=== PATIENT | male | born 1995 | race Caucasian/White ===

== ENCOUNTER → 2021-05-16 09:05 | Outpatient (CLI) | payer OTHER, SELFPAY ==
[2021-05-16 13:36] LABS: COVID19 -Nasal RAPID Negative (Negative)
== END ==
PROVIDERS: Visit Provider Nurse Practitioner Family
DX: Z20.822 Contact with and (suspected) exposure to COVID-19 (principal)
CPT/HCPCS: 87635

== ENCOUNTER 2021-05-18 13:01 | Day surgery (SDC) | payer OTHER, SELFPAY ==
[2021-05-18] VITALS (10 sets, daily range): BP systolic 87–124; BP diastolic 42–75; PULSE 68–102; RESP 12–28; TEMP 36.1–36.6; O2SAT 97–100; BMI 22.6
--- NOTE | 2021-05-18 | PATH_ITS ---
[facility] Accession Number: [id number] . 01 Material submitted: . PART A: body - BIOPSY PART B: body - RANDOM BIOPSY PART C: colon - RANDOM COLON . 01 Clinical history: . A: R/O CELIAC B: R/O EOE C: R/O COLITIS . 02 Diagnosis: A. Biopsy: Duodenal mucosa with no diagnostic abnormality. Negative for active inflammation, features of sprue, dysplasia, or malignancy. . B. Random Biopsy: Squamous mucosa with mild reactive parakeratosis and reflux related changes. A PAS stain is negative for fungal organisms. Intraepithelial eosinophils are not increased. Negative for dysplasia and malignancy. . C. Random Colon, Biopsies: Colonic mucosa with no diagnostic abnormality. Negative for active, chronic, and microscopic colitis. Negative for dysplasia and malignancy. [facility] 05/23/2021 1649 Local . 02 Electronically signed: . Maura Duncan MD, Pathologist NPI- [id number] . 01 Gross description: . Part A: BIOPSY: Received in formalin are 3 fragment(s) of perez, soft tissue measuring 0.3 x 0.3 x 0.2 cm to 0.2 x 0.2 x 0.2 cm submitted entirely in 1 cassette(s) Part B: RANDOM BIOPSY: Received in formalin are 3 fragment(s) of perez, soft tissue measuring 0.3 x 0.3 x 0.1 cm to 0.3 x 0.2 x 0.1 cm submitted entirely in 1 cassette(s) Part C: RANDOM COLON: Received in formalin are 4 fragment(s) of perez, soft tissue measuring 0.4 x 0.3 x 0.1 cm to 0.3 x 0.2 x 0.1 cm submitted entirely in 1 cassette(s) /QBJ 05/19/2021 0846 Local . 02 Microscopic: . B. A PAS stain was performed to evaluate for fungal organisms and is negative. The control stain showed appropriate reactivity. . * This test was developed and its performance characteristics determined by [facility]. It has not been cleared or approved by the U.S. Food and Drug Administration. The FDA has determined that such clearance or approval is not necessary. This test is used for clinical purposes. It should not be regarded as investigational or for research. . 02 Pathologist provided ICD-10: R10.30, R13.14 . 02 CPT . 934317, 990897, 497141, 640730 Performed at: 01 [facility] [address] [facility], [place], [place] [id number] MD West Lynch MD Phone: [phone] Performed at: 02 [facility] [address] [place] [id number] MD Maura Duncan MD Phone: [phone]
[2021-05-18] MEDS: SODIUM CHLORIDE 0.9% 1,000 ML 84 ML IV (13:32)
--- NOTE | 2021-05-18 13:48 | PM.OP.EC ---
Operative Date/Time/Diagnoses Date of procedure: 05/18/21 Pre-op diagnosis: See indication and findings Procedure & Clinicians Study performed: EGD and colonoscopy Indications: Dysphagia, abdominal pain rectal bleeding heartburn Surgeon: Vern Lyon Procedure Notes Procedure in detail: After informed consent was obtained the patient was placed in left lateral decubitus position. Video upper scope placed in knee through oropharynx with the patient's help swelled into esophagus. The esophagus stomach and duodenum were carefully examined. On withdrawal retroflexed view the GE junction was performed. The scope was removed. The patient tolerated procedure well. Patient was then turned to the colonoscope substituted. This was passed through the rectum and advanced cecum. Preparation was good. On slow withdrawal mucosa was carefully examined. The scope was removed. The patient tolerated procedure well. Blood loss none Complications none Sedation mac Findings EGD 1. Completely normal esophagus with normal squamocolumnar junction. Several biopsies taken to rule out eosinophilic esophagitis 2. Normal stomach without any evidence of erythema 3. Normal duodenal bulb and sweep biopsies taken to rule out celiac Colonoscopy 1. Normal colonoscopy to cecum. Random biopsies taken to rule out microscopic colitis Damian should follow-up in the office with Dr. Jose in for further direction
--- NOTE | 2021-05-18 13:52 | PM.HP.1 ---
History of Present Illness History of Present Illness Date Patient Seen: 05/18/21 Chief complaint: DX COLONOSCOPY & EGD Narrative: EGD and colonoscopy in Patient History Medical History (Updated 05/17/21 @ 16:02 by Brandi Carvajal RN) Esophageal dysphagia Heart burn Family & Social History Social History: household members spouse Tobacco & Substance use: Smoking Status Never smoker alcohol intake frequency holiday/special occasion Substance Use Type does not use Meds Home Medications and Allergies Home Medications Medication Instructions Recorded Confirmed Type lamotrigine 25 mg tablet 25 mg PO DAILY 05/17/21 05/18/21 History omeprazole 10 mg capsule,delayed 10 mg PO DAILY 05/17/21 05/18/21 History release quetiapine 50 mg tablet,extended 50 mg PO DAILY 05/17/21 05/18/21 History release 24 hr (Seroquel XR) Allergies Allergy/AdvReac Type Severity Reaction Status Date / Time No Known Drug Allergies Allergy Verified 05/17/21 16:02 Exam Vital Signs (past 8 hours): - 05/18/21 13:17 Temperature 97.7 F Pulse Rate 102 H Respiratory Rate 16 Blood Pressure 124/75 Pulse Oximetry 100 Oxygen Delivery Method Room Air Narrative Exam Narrative: Oropharynx free of lesions Chest clear to auscultation percussion Cardiac exam reveals no S3 or murmur Assessment & Plan Assessment & Plan narrative: Heartburn rectal bleeding abdominal pain dysphagia. Need for EGD and colonoscopy. Risks, benefits, alternatives have been explained. Time Spent With Patient Critical Care time: I spent a total of [] minutes of critical care time on this patient's care today; this time is exclusive of procedural time.
== END 2021-05-18 15:37 | disposition home or self-care (01) ==
PROVIDERS: Referring Provider Internal Medicine Gastroenterology; Visit Provider Internal Medicine Gastroenterology
PROC: 0DJ08ZZ Inspection of Upper Intestinal Tract, Via Natural or Artificial Opening Endoscopic (ICD-10-PCS; CPT 43235; principal; 2021-05-18 14:00)
PROC: 0DJD8ZZ Inspection of Lower Intestinal Tract, Via Natural or Artificial Opening Endoscopic (ICD-10-PCS; CPT 45378; 2021-05-18 14:00)
DX: K62.5 Hemorrhage of anus and rectum (principal); R10.9 Unspecified abdominal pain; R12 Heartburn; R13.10 Dysphagia, unspecified; K22.89 Other specified disease of esophagus
CPT/HCPCS: 45380; 43239; J2250; J2704

== ENCOUNTER → 2022-07-19 06:28 | Outpatient (CLI) | payer OTHER, SELFPAY ==
--- NOTE | 2022-07-19 06:32 | DI.ECHO.S_ITS ---
[facility] +---------+ : : [address] : : : : [id number] : : : : Phone: [phone] Echocardiogram Report + + :Name: JESSICA AHUJA Study Date: 07/19/2022 Height: 66 in : :[facility] ReadingLocation: Weight: 140 lb : : Gender: Male BSA: 1.7 m2 : :: 1995 Age: 27 yrs BP: 116/71 mmHg: :Reason For Study: CHEST PAIN : :Ordering Physician: ROSA, : :DOV Performed By: Alicia Buitrago : :Referring: DOV LEE : + + Interpretation Summary The left ventricle is normal in size. Left ventricular systolic function is normal. The ejection fraction is estimated to be 60-65%. Diastolic parameters suggest probable normal left ventricular diastolic function and normal filling pressures. The right ventricle is normal in size and function. No significant valvular pathology seen. The IVC is of normal diameter and collapses greater than 50% with a sniff. This suggests a low right atrial pressure of 3 mm Hg. Procedure: A two-dimensional transthoracic echocardiogram with color flow and Doppler was performed. The study quality was technically adequate. There is no prior echocardiogram noted for this patient. The patient was in sinus rhythm with heart rates between 79-101 bpm during the exam. Left Ventricle: The left ventricle is normal in size. There is normal left ventricular wall thickness. There is no thrombus. The ejection fraction is estimated to be 60-65%. Left ventricular systolic function is normal. There are no focal wall motion abnormalities. Diastolic parameters suggest probable normal left ventricular diastolic function and normal filling pressures. Right Ventricle: The right ventricle is normal in size and function. Atria: The left atrial size is normal. Right atrial size is normal. There is no Doppler evidence for an interatrial shunt. Mitral Valve: The mitral valve is normal in structure and function. There is no mitral regurgitation noted. Aortic Valve: The aortic valve opens well. The aortic valve is not well visualized. There is no aortic valve stenosis. No aortic regurgitation is present. Tricuspid Valve: The tricuspid valve is normal in structure and function. There is trace tricuspid regurgitation. Pulmonary artery pressures cannot be estimated because of the lack of a measurable TR jet velocity. Pulmonic Valve: The pulmonic valve is not well seen, but is grossly normal. There is no pulmonic valvular regurgitation. Great Vessels: The aortic root is normal size. The dimensions of the ascending aorta are normal. The IVC is of normal diameter and collapses greater than 50% with a sniff. This suggests a low right atrial pressure of 3 mm Hg. Pericardium/ Pleura There is no pericardial effusion. There is no pleural effusion. MMode/2D Measurements & Calculations LVIDd: 4.8 cm LVOT diam: 2.0 cm LVIDs: 2.9 cm Ao root diam: 2.6 cm FS: 38.9 % IVSd: 0.71 cm LVPWd: 0.72 cm LV ambrosio. diameter/BSA (cm/m^2): 2.8 LV sys. diameter/BSA (cm/m^2): 1.7 LA A2 area: 11.8 cm2 RA long axis: 4.0 cm LA A4 area: 14.4 cm2 RA area: 9.8 cm2 LA length (vol): 4.6 cm RA vol: 20.8 ml LA vol: 31.8 ml RA : 12.1 ml/m2 LA vol index: 18.5 ml/m2 IVC diam: 1.6 cm RVD1 (basal): 3.3 cm RVD2 (mid): 2.7 cm TAPSE: 2.3 cm Doppler Measurements & Calculations Ao V2 max: 134.5 cm/sec LVOT Max Rosendo: 115.6 cm/sec Ao V2 mean: 90.1 cm/sec LV V1 max P.3 mmHg Ao max P.2 mmHg LV V1 VTI: 20.9 cm Ao mean P.8 mmHg ANNITA(I,D): 3.0 cm2 Ao V2 VTI: 21.6 cm ANNITA(V,D): 2.6 cm2 sev ratio: 0.97 ANNITA indexed to BSA (cm^2/m^2): 1.7 MV E max rosendo: 98.8 cm/sec PA V2 max: 129.5 cm/sec MV A max rosendo: 38.0 cm/sec PA V2 mean: 91.0 cm/sec MV E/A: 2.6 PA mean P.7 mmHg Med Peak E' Rosendo: 15.5 cm/sec PA pr(Accel): 34.5 mmHg E/E' med: 6.4 Lat Peak E' Rosendo: 14.9 cm/sec E/E' lat: 6.6 E/e' average: 6.5 MV dec time: 0.19 sec SVLVOT): 64.1 ml Reading Physician:01:20 PM
== END ==
PROVIDERS: Referring Provider Orthopaedic Surgery; Visit Provider Orthopaedic Surgery
DX: R07.9 Chest pain, unspecified (principal)
CPT/HCPCS: 93306

== ENCOUNTER → 2023-01-19 11:43 | Outpatient (CLI) | payer OTHER, SELFPAY ==
--- NOTE | 2023-01-19 | DI.RAD.S_ITS ---
PROCEDURE: XR CHEST 2V INDICATIONS: CHEST PAIN TECHNIQUE: 2 views of the chest were acquired. COMPARISON: None. FINDINGS: Surgical changes and devices: Status post Derek procedure for pectus excavatum. Lungs and pleura: Lungs are clear. No pleural effusions or pneumothorax. Mediastinum: Mediastinal contours are normal. Heart size is normal. Bones and chest wall: No suspicious bony abnormalities. Soft tissues appear unremarkable. IMPRESSION: No acute cardiopulmonary abnormality. Dictated by: Alvin Grace M.D. on 01/19/2023 at 12:39 Approved by: Alvin Grace M.D. on 01/19/2023 at 12:42
== END ==
PROVIDERS: Referring Provider Chiropractor; Visit Provider Chiropractor
DX: R07.9 Chest pain, unspecified (principal)
CPT/HCPCS: 71046

== ENCOUNTER → 2023-01-26 11:58 | Outpatient (CLI) | payer OTHER, SELFPAY | PROVIDERS: Referring Provider Chiropractor; Visit Provider Chiropractor | DX: R07.9 Chest pain, unspecified (principal) | CPT/HCPCS: 94060 ==